=== PATIENT | male | born 1955 | race Caucasian/White ===

== ENCOUNTER 2017-12-12 23:55 | Emergency (ER) | payer OTHER ==
[2017-12-13] MEDS: KETOROLAC 15 MG INJ IV (03:17)
== END 2017-12-13 05:12 | disposition home or self-care (01) ==
LOC: E/R 23:55
DX: R07.9 Chest pain, unspecified (principal); M25.571 Pain in right ankle and joints of right foot; E03.9 Hypothyroidism, unspecified
CPT/HCPCS: 71045; 73590; 73610-RT; 96374; 99284-25

== ENCOUNTER 2017-12-22 19:10 | Emergency (ER) | payer OTHER | END 2017-12-22 22:25 | disposition home or self-care (01) | LOC: E/R 22:25 → FTE 19:10 | DX: S92.901A Unspecified fracture of right foot, initial encounter for closed fracture (principal); E03.9 Hypothyroidism, unspecified; V89.2XXD Person injured in unspecified motor-vehicle accident, traffic, subsequent encounter | CPT/HCPCS: 29515; 73630; 99283-25 ==